=== PATIENT | male | born 1990 | race Caucasian/White ===

== ENCOUNTER → 2017-12-17 08:30 | Outpatient (CLI) | payer OTHER, SELFPAY ==
[2017-12-17 12:35] LABS: Absolute Lymphocyte Count 2.07 X10^3/ul (0.83-4.51); Absolute Neutrophil Count 1.6 X10^3/uL (2.0-7.7); Basophil# 0.02 X10^3/uL; Basophil% 0.5 % (0-1); Eosinophil# 0.08 X10^3/uL; Hematocrit 42.6 % (40-54); Hemoglobin 14.6 g/dl (13.0-16.5); Lymphocyte # 2.07 X10^3/ul (4.0); Mean Corp Hgb Conc 34.3 g/gl (32-36); Mean Corpuscular Hgb 29.3 pg (27.0-32.0); Mean Corpuscular Volume 85.5 fL (80-94); Mean Platelet Vol. 11.6 fl (6.2-12.0); Monocyte# 0.32 X10^3/uL; Monocyte% 7.9 % (0-10); Neutrophil # 1.56 X10^3/uL (2.7-7.7); Neutrophil % 38.4 % (47-70); Platelet Count 228 K/mm3 (150-450); RBC Distribution Width SD 37.2 fl (35.1-43.9); Red Blood Count 4.98 M/mm3 (4.6-6.2); White Blood Count 4.1 K/mm3 (4.4-11.0)
[2017-12-17 12:37] LABS: POSITIVE COUNT NO; POSITIVE DIFFERENTIAL NO; POSITIVE MORPHOLOGY NO
== END ==
PROVIDERS: Family Provider Family Medicine; PCP Family Medicine; Visit Provider Family Medicine
DX: R59.9 Enlarged lymph nodes, unspecified (principal)
CPT/HCPCS: 36415; 85025

== ENCOUNTER → 2018-01-03 09:10 | Outpatient (CLI) | payer OTHER, SELFPAY ==
--- NOTE | 2017-12-30 | ASPIG_PTH ---
PATIENT: DIMITRI RICARDO LOC: [facility] U#:[id number] AGE/SX: 34/M ROOM: RE01/03/[address]: Shola Silver MD : 1990 BED: DIS: SPEC #: [id number] RECD: 12/30/17 10:57 STATUS: LUIGI REQ #: [id number] RELL: 12/30/17 00:[address]: Shola Silver DEPT: CYTOLOGY RECD BY: Bennie Zhu ENTERED: 01/06/18 10:58 SP TYPE: ASP OUT OTHR DR: Dr. Suad Carter MD Tissues: Neck, NOS Procedures: FNA Specimen Adequacy Special Stain Group II Surgery Specimen Level IV Iron Stain (control) Cytology Other HEADER OPERATION: FNA PRE-OP DIAGNOSIS: Left neck mass TISSUE SUBMITTED: Left neck mass FNA DIAGNOSIS CYTOLOGY Fine needle aspiration, left lateral neck mass (smears and cell block): Blood and rare macrophages. No evidence of malignancy. AM:ralf 01/07/18 COMMENT The specimen is evaluated at the time of FNA by Dr. Huggins. Immediate Evaluation = Negative for malignant cells. Blood and rare microphages present. Hematoma is a possibility. The lesion markedly decreased in size post needle aspiration. Iron stain with matched control is positive in macrophages. Clinical correlation is suggested. CYTOLOGY STUDY Slides are reviewed. CYTOLOGY GROSS Received is 1 ml of dark red-brown fluid labeled with the patient's name, and designated left neck mass. Four imprints and four paps are made from the submitted fluid and the rest is added to [employer]to[employer] for cell block preparation. Submitted for cytology study. / 01/03/18 TC:5 CPT: 83974, 93583, 83760, 97643
--- NOTE | 2018-01-03 09:10 | DT_ITS ---
This patient was seen during an EMR downtime January 03, 2018 - January 10, 2018. This patient may have a combination of paper and electronic documentation or all paper documentation. All documentation is viewable within the e-chart portion of [employer] for each patient visit.
== END ==
PROVIDERS: Family Provider Family Medicine; PCP Family Medicine; Visit Provider Otolaryngology Otolaryngology/Facial Plastic Surgery
DX: R22.1 Localized swelling, mass and lump, neck (principal)
CPT/HCPCS: 88161; 88172; 88305; 88313

== ENCOUNTER 2018-03-14 20:31 | Emergency (ER) | payer OTHER, SELFPAY ==
[2018-03-14 20:32] VITALS: BP 141/83; PULSE 83; RESP 18; O2SAT 100; BMI 20.7
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
[2018-03-14] MEDS: Ibuprofen 600 MG Tablet PO (20:48)
[2018-03-14 22:29] VITALS: BP 128/76; PULSE 88; RESP 16; O2SAT 98
[2018-03-14 22:35] VITALS: BP 128/76; PULSE 88; RESP 16; O2SAT 98
== END 2018-03-14 22:36 | disposition home or self-care (01) ==
PROVIDERS: Emergency Provider Emergency Medicine; Family Provider Family Medicine; PCP Family Medicine
DX: T21.22XA Burn of second degree of abdominal wall, initial encounter (principal); T20.16XA Burn of first degree of forehead and cheek, initial encounter; T20.15XA Burn of first degree of scalp [any part], initial encounter; T21.11XA Burn of first degree of chest wall, initial encounter; T31.10 Burns involving 10-19% of body surface with 0% to 9% third degree burns; X04.XXXA Exposure to ignition of highly flammable material, initial encounter; X01.0XXA Exposure to flames in uncontrolled fire, not in building or structure, initial encounter; Y93.9 Activity, unspecified; Y92.9 Unspecified place or not applicable; Y99.9 Unspecified external cause status
CPT/HCPCS: 99282

== ENCOUNTER 2019-05-25 08:07 | Emergency (ER) | payer OTHER, SELFPAY ==
[2019-05-25 08:08] VITALS: BP 126/72; PULSE 67; RESP 12; TEMP 35.9; O2SAT 98; BMI 24.1
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
[2019-05-25 10:23] LABS: HIV - WCH Non-Reactive (Nonreactive); Hepatitis B Surface Antibody Reactive; Hepatitis B Surface Antigen Non-Reactive (Nonreactive); Hepatitis C Antibody Non-Reactive (Nonreactive)
== END 2019-05-25 09:37 | disposition home or self-care (01) ==
PROVIDERS: Emergency Provider Emergency Medicine; Family Provider Family Medicine; PCP Family Medicine
DX: S61.231A Puncture wound without foreign body of left index finger without damage to nail, initial encounter (principal); W46.1XXA Contact with contaminated hypodermic needle, initial encounter; Y93.F9 Activity, other caregiving; Y92.9 Unspecified place or not applicable; Y99.0 Civilian activity done for income or pay
CPT/HCPCS: 86703; 86706; 86803; 87340; 99282